=== PATIENT | female | born 1965 | race Caucasian/White ===

== ENCOUNTER 2017-07-26 19:10 | Emergency (ER) | payer OTHER ==
[2017-07-26] MEDS ORDERED: HYDROmorphone HCL 1 MG/ML DISP.SYRIN IV ONE ×2 (19:24→20:01)
[2017-07-26] MEDS ORDERED: NORMAL SALINE 1,000 ML IV ONE (19:24)
[2017-07-26] MEDS ORDERED: ONDANSETRON HCL/PF 2 MG/ML VIAL IV ONE (19:24)
[2017-07-26] MEDS ORDERED: ONDANSETRON HCL/PF 2 MG/ML VIAL ONE (19:27)
[2017-07-26] MEDS ORDERED: HYDROmorphone HCL 1 MG/ML DISP.SYRIN ONE (19:27)
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
[2017-07-26 19:37] LABS: Hematocrit 33.3 % (37.0-47.0); Hemoglobin 11.3 gm/dL (12.5-16.0); Mean Cell Volume 90.2 fl (78-100); Mean Corpuscular Hemoglobin 30.6 pg (27-31); Mean Corpuscular Hgb Conc 33.9 g/dl (32-36); Mean Platelet Volume 10.8 fl (6.0-9.5); Neutrophil # 4.2 K/mm3 (1.3-6.0); Neutrophil % 58.8 % (42-75.0); Platelet Count 207 K/mm3 (150-450); Red Blood Count 3.69 M/mm3 (4.2-5.4); Red Cell Distribution Width 12.5 % (11.5-14.0); White Blood Count 7.1 K/mm3 (4.0-10.5)
[2017-07-26 19:50] LABS: Anion Gap 16.1 mmol/L (6.8-13.8); BUN/Creatinine Ratio 5.1 (9.0-21.6); Bilirubin, Total 0.4 mg/dL (0.0-1.1); Calcium * 8.3 mg/dL (7.9-10.9); Magnesium 1.9 mg/dL (1.2-2.8); Potassium 4.1 mmol/L (3.4-4.6); Total Protein 7.3 gm/dL (6.2-8.2)
[2017-07-26] MEDS ORDERED: HYDROcodone/ACETAMINOPHEN 1 EACH TABLET ONE (20:41)
[2017-07-26] MEDS ORDERED: HYDROcodone/ACETAMINOPHEN 1 EACH TABLET PO ONE (20:43)
[2017-07-26 21:49] VITALS: BP 111/62
== END 2017-07-26 20:50 | disposition home or self-care (01) ==
LOC: ER 19:10
DX: R10.84 Generalized abdominal pain (principal); V80.42XA Occupant of animal-drawn vehicle injured in collision with car, pick-up truck, van, heavy transport vehicle or bus, initial encounter; Y93.9 Activity, unspecified; Y92.9 Unspecified place or not applicable; Y99.9 Unspecified external cause status; Z85.3 Personal history of malignant neoplasm of breast
CPT/HCPCS: 36415; 71260; 72129; 72132; 74177; 80053; 83605; 83690; 83735; 85025; 96374; 96375; 99285; J2405